=== PATIENT | male | born 1990 | race Asian ===

== ENCOUNTER 2024-10-12 17:58 | Emergency (ER) | payer OTHER, SELFPAY ==
[2024-10-12 18:06] VITALS: BP 125/80
--- NOTE | 2024-10-12 19:35 | ED.GENMED ---
History of Present Illness
General
Chief Complaint: Back Pain
Time Seen by Provider: 10/12/24 19:35
History of Present Illness
History of Present Illness:
PAST MEDICAL HISTORY AND REVIEW OF OLD RECORDS
- The patient denies any significant past medical history. There are no old records available for review in [facility].
Note:
CHIEF COMPLAINT(S)
Lower back pain.
HISTORY OF PRESENT ILLNESS
The patient is a 34-year-old male who presented with the acute onset of lower back pain that began around 9 to 10 AM on the day of presentation. The patient reports that the pain is diffuse across the lower back but denies any specific injury or
trauma leading up to the pain. He states that the pain is exacerbated by sitting and standing, though walking offers some relief. There are no associated symptoms such as abdominal pain, bowel or bladder incontinence, or pain radiating down the
legs. The patient has not taken any medications such as acetaminophen or ibuprofen prior to this visit.
SOCIAL HISTORY
The patient is driving himself and indicates he can manage his activities of daily living without significant limitations.
REVIEW OF SYSTEMS
- Musculoskeletal: Complains of diffuse lower back pain, exacerbated by sitting and standing; relieved somewhat by walking.
- Neurological: No lower extremity weakness or radiating pain reported.
- Gastrointestinal: Denies abdominal pain, bowel incontinence, or changes in bowel habits.
- Genitourinary: Reports normal urination without issues.
PHYSICAL EXAM
General: Alert, appears to be in mild pain distress.
Skin: Warm, dry.
Head: Normocephalic, atraumatic.
Neck: Supple, trachea midline.
Eye Ears, Nose, Mouth, and Throat: Oral mucosa moist.
Cardiovascular: Normal peripheral perfusion, No edema.
Respiratory: Respirations are non-labored.
Gastrointestinal: Abdomen nondistended.
Back: Minimal tenderness in the lumbar paraspinal region with no bony tenderness of the C, T, or lumbar spine
Musculoskeletal: Diffuse lower back tenderness, increased pain with sitting and improved with standing, relieved by walking. Otherwise, normal range of motion, normal strength.
Neurological: Alert and oriented to person, place, time, and situation, no focal neurological deficit observed.
Psychiatric: Cooperative, appropriate mood & affect.
PROBLEM LIST
Acute Problems:
- Lower back pain, likely musculoskeletal in origin.
PLAN
- Administered an intramuscular injection of Toradol for immediate pain relief.
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
- Recommended continued use of pcsq-wjy-yivrfhd ibuprofen (Motrin) for pain management.
- Prescription for Flexeril sent to the patients pharmacy at [facility] on [address].
DIFFERENTIAL DIAGNOSIS
The Differential Diagnosis includes, in no particular order and is not limited to:
- Lumbar muscle strain
- Lumbar sprain
- Herniated intervertebral disc
- Degenerative disc disease
- Facet joint dysfunction
- Sacroiliac joint dysfunction
- Spinal stenosis
- Spondylosis
- Ankylosing spondylitis
- Myofascial pain syndrome
Disposition:
SUMMARY OF ENCOUNTER
The patient, a 34-year-old male, presented to the emergency department with acute onset of lower back pain occurring earlier in the day. The pain is diffuse, without a specific injury or trauma precipitating it. The patient reports that sitting and
standing exacerbate the pain, while walking provides some relief. There are no associated red flags such as neurological symptoms or signs of systemic illness. Immediate pain relief was addressed with an intramuscular injection of ketorolac, and a
prescription for cyclobenzaprine was sent to his pharmacy for ongoing pain management at home. The use of zzef-mbi-olfvtsj NSAIDs was also recommended.
DISPOSITION
Discharge.
ASSESSMENT
Acute lower back pain, likely musculoskeletal in origin, without radicular symptoms or concerning red flags.
EMERGENCY TREATMENTS ADMINISTERED
Administered an intramuscular injection of ketorolac.
PLAN
The patient was advised to use tjjp-qhq-wkjynqa NSAIDs for pain management. A prescription for cyclobenzaprine was sent to his pharmacy, to be taken when not driving.
PATIENT EDUCATION AND COUNSELING
The patient was informed about the likely musculoskeletal nature of his lower back pain and advised on pain management strategies, including the use of NSAIDs and the prescribed muscle relaxant. He was instructed on the importance of movement to
alleviate pain and to avoid prolonged sitting or standing.
FOLLOW-UP INSTRUCTIONS
The patient was advised to follow up with a primary care provider if symptoms persist or worsen.
MEDICATION RECONCILIATION
Administered ketorolac. Prescribed cyclobenzaprine for muscle relaxation at home. Advised use of [id number]-atbbtxw NSAIDs like ibuprofen.
MEDICAL DECISION MAKING
- Complexity of Data Reviewed: Differential diagnosis includes lumbar muscle strain, lumbar sprain, herniated intervertebral disc, degenerative disc disease, facet joint dysfunction, sacroiliac joint dysfunction, spinal stenosis, spondylosis,
ankylosing spondylitis, and myofascial pain syndrome.
- Data:
Category 1: No labs or imaging were ordered, based on the clinical presentation suggesting a musculoskeletal origin without red flags.
- Risk: Prescription medication was prescribed (cyclobenzaprine).
DIAGNOSIS
Acute musculoskeletal lower back pain (ICD-10: M54.5).
Phy Exam
Physical Exam
Physical Exam:
See HPI
Course
Orders/Labs/Results
Orders:
Orders
10/12/24 19:43
Ketorolac [Toradol] 30 mg IM NOW STA
Vital Signs
Initial and Last Documented VS:
Initial Vital Signs
Temp Pulse Resp BP Pulse Ox
37.2 C 85 16 125/80 98
10/12/24 18:10/12/24 18:06 10/12/24 18:06 10/12/24 18:06 10/12/24 18:06
Last Documented Vital Signs
Temp Pulse Resp BP Pulse Ox
37.2 C 85 16 125/80 98
10/12/24 18:06 10/12/24 18:06 10/12/24 18:06 10/12/24 18:06 10/12/24 19:36
*Pulse Oximetry
SaO2: 98
Oxygen Mode of Delivery: Room air
Patient hypoxic: no
*Critical Care Note
Total Time (30-74mins, 75-104mins- exclusive of procedures): Not Applicable
ED Attending Note
-
Portions of this chart may have been created with voice recognition software.� Occasional wrong word or��sound alike� substitutions may have occurred due to the inherent limitations of voice recognition software.
Discharge Plan
Departure
Patient Disposition: Home (Routine Discharge)
Date of Disposition: 10/12/24
Time of Disposition: 19:43
Patient with high blood pressure during this ER visit?: Yes
Discharge Problem:
Low back pain
Instructions: Low Back Pain (DC), BLOOD PRESSURE
Prescriptions:
New
cyclobenzaprine 10 mg tablet
10 mg PO TIDPRN PRN (Reason: muscle spasm) Qty: 12 0RF
Activity Restrictions/Additional Instructions:
I recommend 3-4 dhkf-cyz-zhiycjr ibuprofen (Motrin) every 8 hours with food for a few days. Return here if worse. I sent a prescription to your pharmacy ([facility]) for Flexeril (cyclobenzaprine). This may lead to some sedation I recommend that
you not drive if you take this medication. Follow-up with your primary care doctor.
Interventions
Interventions:
*Risk Screen - Suicide Last Done: 10/12/24 18:07
*Neglect/Abuse Screening Last Done: 10/12/24 18:07
ED-Musculoskeletal Assessment Last Done: 10/12/24 19:40
Discharge Date and Time
Print Language: WOLOF
[2024-10-12] MEDS: TORADOL 30 MG IM (19:51)
== END 2024-10-12 20:02 | disposition home or self-care (01) ==
LOC: EMR 17:58
PROVIDERS: EMERGENCY PHYSICIAN Emergency Medicine
DX: M54.50 Low back pain, unspecified (principal)
CPT/HCPCS: 99284; 96372